=== PATIENT | male | born 1975 | race Caucasian/White ===

== ENCOUNTER 2024-02-01 04:34 | Emergency (ER) | payer OTHER, SELFPAY ==
[2024-02-01] VITALS (12 sets, daily range): BP systolic 99–119; BP diastolic 64–78; BMI 28.9; BMI 28.4
[2024-02-01 04:53] LABS: % Basophils 1.3 % (0-2); % Eosinophils 1.8 % (0-6); % Immature Granulocytes 0.5 % (0-0.5); % Lymphocytes 39.2 % (20.5-51.1); % Neutrophils 47.2 % (42.2-75.2); Absolute Basophils 0.1 10^3/uL (0-0.2); Absolute Eosinophils 0.1 10^3/uL (0-0.7); Absolute Lymphocytes 2.5 10^3/uL (1.2-3.4); Absolute Monocytes 0.6 10^3/uL (0.1-0.6); Hematocrit 39.9 % (39.0-52.0); Mean Corp Hgb Conc. 35.1 g/dL (33.0-37.0); Mean Corpuscular Hgb 28.8 pg (27.0-31.0); Mean Corpuscular Volume 82.1 fL (80.0-94.0); Nucleated Red Blood Cells % 0 % (-); Platelet Count 237 10^3/uL (130-400); Red Blood Cell Count 4.86 10^6/uL (4.70-6.10); Red Cell Dist. Width 12.1 % (11.5-14.5); White Blood Cell Count 6.3 10^3/uL (4.8-10.8)
[2024-02-01 05:15] LABS: ALT (SGPT) 42 U/L (0-50); AST (SGOT) 40 U/L (17-59); Albumin 3.9 g/dl (3.5-5.0); Alkaline Phosphatase 47 U/L (38-126); Blood Urea Nitrogen 19 mg/dl (9-20); Calcium 8.4 mg/dl (8.4-10.2); Carbon Dioxide 25 mmol/L (22-30); Chloride 102 mmol/L (98-107); Estimated Creatinine Clearance 67 ml/min; Glucose 103 mg/dl (70-99); Potassium 3.6 mmol/L (3.5-5.1); Sodium 133 mmol/L (135-145); Total Bilirubin 0.2 mg/dl (0.2-1.3); Total Protein 6.2 g/dl (6.3-8.2); eGFR > 60.00
[2024-02-01 05:25] LABS: Troponin I < 0.012 ng/ml
--- NOTE | 2024-02-01 06:18 | ED.GENMED ---
History of Present Illness
General
Chief Complaint: Chest Pain
Source: patient, spouse and ambulance crew
Exam Limitations: none
Time Seen by Provider: 02/01/24 06:06
Nursing documentation reviewed up to this point in time: agreed with
History of Present Illness
History of Present Illness:
48-year-old male with past medical history of hypertension, IBS who presents to the emergency department with his for evaluation of chest pain. Patient reports onset of symptoms around 3:30 AM�he reports he had sudden onset of chest pain that
woke him from sleep. He describes a very intense tight feeling in his chest associated with shortness of breath, palpitations, dizziness. He says he had some tingling in his arms and fingers. He says that it was not improving despite attempts to
go back to sleep and so EMS was called to bring him to the hospital. Per EMS on arrival twelve-lead EKG showed no STEMI but he was given 324 mg of aspirin and a sublingual nitroglycerin. Patient says that on the way to the hospital after these
interventions his symptoms improved and since arrival in the emergency room he tells me his symptoms have resolved he now just feels mildly fatigued. He was noted to be hypotensive after nitroglycerin, was given some IV fluids with improvement. He
denies any symptoms prior to going to bed last night. He denies any nausea, vomiting, abdominal pain. He denies similar symptoms in the past. He denies any known personal cardiac history but says there is a strong family history of heart disease
in his father.
Review of Systems
Review of Systems
All Other Systems: ROS reviewed and negative except as documented in HPI and ROS
Constitutional: Reports fatigue; Denies fever or chills
Respiratory: Reports trouble breathing; Denies cough
Cardiac: Reports chest pain and palpitations; Denies diaphoresis or syncope
ABD/GI: Denies abdominal pain, nausea or vomiting
: Denies flank pain
Musculoskeletal: Denies neck pain or back pain
Neurological: Reports dizzy; Denies headache
Phy Exam
Physical Exam
Physical Exam:
General: Awake, alert, oriented x3; no acute distress
Head: Normocephalic, atraumatic
Eyes: Conjunctiva normal
Throat: Airway intact, handling secretions
Neck: Trachea midline, supple without meningismus
Lungs: Clear to auscultation bilaterally, no wheezing, rales, rhonchi
Heart: Regular rate and rhythm, no murmurs, gallops, or rubs; no chest wall tenderness
Abd: Soft, non distended, nontender
Neuro: No gross deficits
Skin: no rash
Extremities: No edema in extremities, equal pulses in all extremities
Scores
Heart Failure Risk
Heart Failure Risk Score: Not Applicable
Heart Score for Chest Pain Patients
STEMI patient?: No
History: Slightly or Non-Suspicious
ECG: Normal
Age: >45 - <65 years
Risk Factors: 1 or 2 Risk Factors
Troponin: </= Normal Limit
Heart Score for Chest Pain Patients: 2
Heart Score Risk: 2.5% MACE over next 6 weeks
PE Wells Score
Symptoms of DVT: No
No alternative diagnosis better explains the illness: No
Tachycardia with pulse > 100: No
Immobilization (>=3 days) or surgery within previous 4 weeks: No
Prior history of DVT or pulmonary embolism: No
Presence of hemoptysis: No
Presence of malignancy: No
Pulmonary Embolism Risk Score: 0
Probability of PE: Pt is low risk
Withdrawal Assessment of Alcohol
Withdrawal Assessment Completed?: Not applicable
Course
Orders/Labs/Results
Orders:
Orders
02/01/24 04:39
Electrocardiogram (*1) Urgent
Reason for Study: Chest Pain
Cardiac Monitoring- Treatment ONCE
EKG- Treatment ONCE
IV Insert/Care/Rem.- Treatment PRN
O2 Therapy [RESP] Urgent
Titrate/Wean O2 to maintain O2 sat greater than (%): 90
Special Instructions: Maintain sats >/=90%
Pulse Ox/spot Check [RESP] Urgent
Quantity: 1
Special Instructions: ON ROOM AIR
02/01/24 04:40
Complete Blood Count/With Diff Urgent
Comprehensive Metabolic Panel Urgent
D-Dimer Urgent
Troponin I Urgent
02/01/24 06:17
CR Chest - 2 Views Urgent
Comment:
Reason For Exam: chest pain
02/01/24 06:26
CARDIOLOGY CONSULT Urgent
Consulting Provider: Dharmesh Brown
Was physician already notified: Yes
02/01/24 06:56
Troponin I Urgent
Abnormal Lab Results
02/01/24
04:40
Monocytes % 10.0 H %
(1.7-9.3)
Sodium 133 L mmol/L
(135-145)
Glucose 103 H mg/dl
(70-99)
Total Protein 6.2 L g/dl
(6.3-8.2)
02/01/24 04:40
02/01/24 04:40
Vital Signs
Initial and Last Documented VS:
Initial Vital Signs
Temp Pulse Resp BP Pulse Ox
37.0 C 68 18 112/64 98
02/01/24 04:38 02/01/24 04:38 02/01/24 04:38 02/01/24 04:38 02/01/24 04:38
Last Documented Vital Signs
Temp Pulse Resp BP Pulse Ox
36.4 C 63 11 106/78 98
02/01/24 07:46 02/01/24 07:46 02/01/24 07:46 02/01/24 07:46 02/01/24 07:46
MDM/Problems Addressed
Differential Diagnosis Includes:
ACS/angina, PE, pneumothorax, pneumonia, GERD, panic attack; aortic dissection considered much less likely with symptoms resolved, normotension
MDM/Problems Addressed:
48-year-old male with history as above presents for evaluation after episode of chest pain as described above. Chest pains have resolved by my assessment. Vitals and exam as above�did have some hypotension after dose of nitroglycerin prehospital
that resolved with fluids. EKG on arrival shows sinus rhythm no STEMI. He had IV placed labs were sent off including a CBC and a CMP which were unremarkable. He had a troponin sent off which was undetectable�will repeat troponin. Send D-dimer.
Check chest x-ray. Will monitor closely reassess after the above. Case discussed with cardiology for consultation.
D-dimer negative, repeat troponin undetectable. Chest x-ray reviewed by me shows no acute pathology. Patient has been chest pain-free since shortly after arrival and on clinical reassessment remains chest pain-free and has stable vital signs.
Cardiology evaluated�they will follow-up as an outpatient. Patient feels comfortable with this plan�can refer [facility] chest pain hotline. I did speak to him about return precautions and all questions were answered.
Chronic conditions affecting care:
Hypertension, family history of heart disease
*Radiology
Radiology exam reviewed: preliminary read by ED provider and radiology read reviewed
*Pulse Oximetry
Patient hypoxic: no
*EKG
Interpreted by ED Provider?: Yes
Heart Rate: 67
Rate: normal
Rhythm: sinus
[place]: normal axis
Interval: normal interval
QRS Pattern: normal QRS
Ischemia: other (Septal infarct age undetermined)
*Critical Care Note
Total Time (30-74mins, 75-104mins- exclusive of procedures): Not Applicable
Data Reviewed
Source: patient and spouse
Patient Management
Discussion with other providers: House Fellow (Discussed with spanish instructor)
ED Attending Note
-
Portions of this chart may have been created with voice recognition software.� Occasional wrong word or��sound alike� substitutions may have occurred due to the inherent limitations of voice recognition software.
Discharge Plan
Departure
Patient Disposition: Home (Routine Discharge)
Date of Disposition: 02/01/24
Time of Disposition: 08:27
Patient with high blood pressure during this ER visit?: No
Discharge Problem:
Chest pain
Instructions: Chest Pain CBC Follow Up
Prescriptions:
No Action
clonazepam 0.5 mg Tablet
0.5 mg PO DAILY
ziprasidone HCl 20 mg Capsule
20 mg PO DAILY
hyoscyamine sulfate 0.125 mg Tablet,Disintegrating
0.125 mg PO PRN PRN (Reason: IBS)
nebivolol 2.5 mg Tablet
2.5 mg PO DAILY
lamotrigine [Lamictal XR] 300 mg Tablet Extended Release 24hr
400 mg PO DAILY
Referrals:
William Denton MD [Active] - Call in 1-3 days for appt
NONE,* [Family Provider] -
Activity Restrictions/Additional Instructions:
Thank you for visiting the Emergency Department at [facility].
1. Please schedule a follow up appointment as directed. Call first thing tomorrow morning to make an appointment.
2. If indicated, please take your medications as instructed and indicated on discharge paperwork.
3. If any of your symptoms do not improve, or persist, or become more severe within 6-12 hours, please return to the emergency department for further care.
4. Please return to the emergency department if you develop a headache, neck pain/stiffness, fever greater than 100.4F, chest pain, shortness of breath, persistent nausea, vomiting, slurred speech, difficulty walking, numbness/tingling, weakness,
signs of infection or any other symptoms that are worrisome to you.
Please call [phone] if you have any questions.
Interventions
Interventions:
*Risk Screen - Suicide Last Done: 02/01/24 04:38
*General Assessment Last Done: 02/01/24 04:38
*Neglect/Abuse Screening Last Done: 02/01/24 04:38
ED- Fall Risk Assessment Last Done: 02/01/24 07:46
*ED COVID-19 Vaccine History Last Done: 02/01/24 04:38
ED- Cardiac Assessment Last Done: 02/01/24 07:46
Discharge Date and Time
Print Language: AMHARIC
[2024-02-01 07:03] LABS: D-Dimer < 0.27 ug/mlFEU (0.00-0.50)
[2024-02-01 07:27] LABS: Troponin I < 0.012 ng/ml
== END 2024-02-01 08:48 | disposition home or self-care (01) ==
LOC: EMR 04:34
PROVIDERS: Emergency Medicine; CONSULT PHYSICIAN Student in an Organized Health Care Education/Training Program; EMERGENCY PHYSICIAN Emergency Medicine
DX: R07.89 Other chest pain (principal); I10 Essential (primary) hypertension; K58.9 Irritable bowel syndrome, unspecified; Z82.49 Family history of ischemic heart disease and other diseases of the circulatory system
CPT/HCPCS: 99283; 71046; 80053; 84484; 85025; 85379; 93005

== ENCOUNTER → 2024-02-17 09:39 | Outpatient (REF) | payer OTHER, SELFPAY | LOC: RCS 09:39 | PROVIDERS: ATTENDING PHYSICIAN Student in an Organized Health Care Education/Training Program | DX: R07.2 Precordial pain (principal) | CPT/HCPCS: 93017 ==

== ENCOUNTER → 2024-02-28 07:00 | Outpatient (REF) | payer OTHER, SELFPAY | LOC: HWRCS 07:00 | PROVIDERS: ATTENDING PHYSICIAN Student in an Organized Health Care Education/Training Program | DX: R94.39 Abnormal result of other cardiovascular function study (principal); R07.2 Precordial pain; R00.2 Palpitations; I10 Essential (primary) hypertension; Z82.49 Family history of ischemic heart disease and other diseases of the circulatory system | CPT/HCPCS: 78452; 93017; A9500 ==